=== PATIENT | male | born 1955 | race Caucasian/White ===

== ENCOUNTER 2021-07-06 21:15 | Observation (INO) ==
[2021-07-06] MEDS ORDERED: ONDANSETRON INJ 2 MG/ML 2 ML VIAL IV STA (21:44)
[2021-07-06] MEDS ORDERED: MoRPHine SULFATE 4 MG/ML 1 ML CARP\\VIAL IV STA ×2 (21:44→23:33)
--- NOTE | 2021-07-06 21:59 | Emergency Department Note ---
Impression & Plan Abdominal pain, Hypertensive urgency ED Provider Note Provider: Nirav Keenan MD DATE OF SERVICE: 07/06/2021 CHIEF COMPLAINT: Abdominal and back pain HISTORY OF PRESENT ILLNESS: Patient is a 65-year-old gentleman presenting with sudden onset around 530 this evening of significant abdominal pain diffusely radiating to the back. Patient states he was sitting in a came on suddenly. No significant chest pain or leg pain or numbness. Patient states she has a little bit of nausea but no vomiting and no diarrhea. Patient states he is low bit of abdominal tenderness. No syncope reported. Patient states he took some Dulcolax and some ibuprofen without effect earlier. Patient states he had a little bit of stomach cramping discomfort earlier in the summer but that was a little bit different than this and not as severe and resolved quickly. Patient denies history of abdominal surgeries beyond 2 inguinal hernia surgeries. Denies lower abdominal or inguinal pain. Denies testicular pain. REVIEW OF SYSTEMS: A total of 10 review of systems was obtained and negative except as stated above in the HPI. PAST MEDICAL HISTORY: As noted above MEDICATIONS: Reviewed home medications with the patient, baby aspirin SOCIAL HISTORY: Non-smoker, lives at home PHYSICAL EXAM: GENERAL: alert and oriented seated on the stretcher appears somewhat uncomfortable Head: normocephalic and atraumatic EYES: No injection, discharge or icterus. NECK: Trachea midline. LUNGS: Airway patent. No retractions. Breath sounds clear with good air entry bilaterally. HEART: Regular rate and rhythm. No chest wall tenderness ABDOMEN: Soft with mild diffuse mid abdominal tenderness. BACK: No midline tenderness, no SI joint tenderness. No bilateral flank tenderness. SKIN: Acyanotic, warm, dry, without rashes EXTREMITIES: Without swelling, tenderness or deformity NEUROLOGICAL: No focal deficits. No aphasia. No facial droop or slurred speech. Ambulatory. EK bpm sinus bradycardia without PVC or PAC. No acute ST segment elevation or depression noted. QTc 434. Lead III T wave inversions as well as aVF T wave inversions. CONTINUOUS CARDIAC MONITORING: was ordered and showed a heart rate of 50s-90s bpm in normal sinus rhythm and sinus bradycardia Patient's laboratory studies and imaging reviewed. Differential includes Appendicitis, testicular torsion, infections, diverticulitis, UTI, obstruction, mesenteric ischemia, aortic pathology, inflammatory bowel disease, renal colic, PUD, pancreatitis, biliary pathology, hernia, volvulus, constipation, as well as other pathologies. IMPRESSION/MEDICAL DECISION MAKING: Patient without significant past medical history and significant discomfort in the mid abdomen radiating to the back. Denies any chest pain. EKG and troponin were however completed. Given some morphine and Zofran to help with symptom control initially. Will send for CT scan emergently to evaluate for intra- abdominal pathology in particular for any signs of aortic dissection. Basic labs to look for hepatic dysfunction or lipase elevation concerning for pancr eatitis were sent. Blood work here with a leukocytosis of 14.8. No anemia. No severe electrolyte abnormality. Stable creatinine of 1.3. No transaminitis or elevated bilirubin noted. Lipase not elevated. Troponin is not elevated. EKG was obtained. Lower suspicion for acute UT/STEMI given the work-up. Patient blood pressure is improved some with morphine which has helped his pain. Urinalysis not impressive for infection. No findings on the CT report for aortic pathology or other acute intra-abdominal pathology. Symptoms could be related to gastrointestinal spasm. Seems unlikely to be biliary colic. On reassessment, the patient was with still having 7 out of 10 abdominal pain and blood pressure was still over 200 systolic. Still with some mid abdominal discomfort but not a Tavares sign. Again CAT scan results and laboratory findings reviewed with the patient. Patient's hypertension and pain seems without to the findings at this time. Again CTA did not show evidence of acute arterial abnormality per the radiology report. Will complete a right upper quadrant ultrasound of the gallbladder to exclude this but given his significant pain and new significant hypertension, given some additional morphine hydralazine here. Discussed further observation overnight with the patient which he wished for and the hospitalist was contacted. DIAGNOSIS: Abdominal pain, hypertensive urgency DISPOSITION: Hospitalist will evaluate Patient was agreeable with this plan. Past Med/Surg History Social History Smoking Status: Never smoker Preferred Language: Kittitian Feels Safe at Home: Yes Allergies Allergies Allergy/AdvReac Type Severity Reaction Status Date / Time SULFA Allergy Unknown Unknown Uncoded 07/06/21 22:50 Home Meds Home Medications Medication Instructions Recorded Confirmed aspirin 81 mg tablet,delayed 81 mg PO DAILY 07/06/21 07/06/21 release (Aspirin Low Dose) multivitamin 1 tab PO DAILY 07/06/21 07/06/21 Results & Data (ED) Vital Signs Vital Signs - 24 hr 07/06/21 21:16 07/06/21 21:34 07/06/21 22:53 Temperature 36.6 C Temperature Source Temporal Artery Scan Pulse Rate 70 80 Pulse Rhythm Regular Pulse Strength Normal Respiratory Rate 18 18 18 Respiratory Effort / Characteristics Non-Labored Respiratory Depth Normal Respiratory Pattern Regular Blood Pressure 226/107 H Blood Pressure [Left Arm] 187/92 H Blood Pressure Mean 146 Blood Pressure Mean [Left Arm] 123 Blood Pressure Position Sitting Blood Pressure Position [Left Arm] Semi-fowlers Pulse Oximetry 98 93 97 Oxygen Delivery Method Room Air Room Air Room Air Sepsis Recent Fever Within 48 Hours No Sepsis New/Unexplained Change in Mental Status No Sepsis Action Taken by Nursing No Action Required Laboratory Data Result diagrams: 07/06/21 22:10 07/06/21 22:10 Lab Results 07/06/21 07/06/21 07/06/21 Range/Units 22:10 22:10 22:45 WBC 14.85 H (4.8-10.8) K/uL RBC 5.21 (4.7-6.1) M/uL Hgb 16.1 (14.0-18.0) g/dL Hct 44.2 (42-52) % MCV 84.8 (80-100) fL MCH 30.9 (25-34) pg MCHC 36.4 H (32-36) g/dL RDW Std Deviation 39.8 (36.4-46.3) fL RDW Coeff of Tc 12.9 (11.5-14.5) % Plt Count 240 (130-400) K/uL MPV 10.0 (7.4-10.4) fL Immature Gran % (Auto) 0.3 % Neut % (Auto) 88.0 % Lymph % (Auto) 6.7 % [place] % (Auto) 4.8 % Eos % (Auto) 0.1 % Baso % (Auto) 0.1 % Neut # (Auto) 13.08 H (1.4-6.5) K/uL Lymph # (Auto) 0.99 L (1.2-3.4) K/uL [place] # (Auto) 0.71 H (0.11-0.59) K/uL Eos # (Auto) 0.01 (0-0.5) K/uL Baso # (Auto) 0.02 (0-0.2) K/uL Immature Gran # (Auto) 0.04 H (0.00-0.02) K/uL Sodium 137 (136-145) mmol/L Potassium 3.4 L (3.5-5.1) mmol/L Chloride 106 (98-107) mmol/L Carbon Dioxide 22 (21-32) mmol/L Anion Gap 9.0 (3-11) BUN 25 H (7-18) mg/dl Creatinine 1.37 (0.6-1.4) mg/dl Est Cr Clr Drug Dosing 54.1 ml/min Est GFR ( Amer) 62.3 ml/min Est GFR (Non-Af Amer) 53.7 ml/min BUN/Creatinine Ratio 18.0 (10-20) Glucose 172 H (70-99) mg/dl Calcium 9.7 (8.5-10.1) mg/dl Total Bilirubin 0.8 (0.2-1) mg/dl AST 19 (15-37) U/L ALT 23 (12-78) Alkaline Phosphatase 65 (45-117) U/L Troponin I < 0.015 (0-0.045) ng/ml Total Protein 7.2 (6.4-8.2) gm/dl Albumin 3.9 (3.4-5.0) gm/dl Globulin 3.3 (2.5-4.0) gm/dl Albumin/Globulin Ratio 1.2 (0.9-2) Lipase 100 (73-393) U/L Urine Color Yellow Urine Appearance Clear (Clear) Urine pH 8.5 H (4.5-7.5) Ur Specific [place] 1.022 (1.000-1.030) Urine Protein Negative (Negative) Urine Glucose (UA) Trace H (Negative) Urine Ketones 1+ H (Negative) Urine Blood 1+ H (Negative) Urine Nitrite Negative (Negative) Urine Bilirubin Negative (Negative) Urine Urobilinogen Negative (Negative) Ur Leukocyte Esterase Negative (Negative) Urine WBC (Auto) 0 (0-5) /hpf Urine RBC (Auto) 5-10 H (0-4) /hpf U Hyaline Cast (Auto) 0 (0-5) /lpf U Epithel Cells (Auto) 0-5 (0-5) /lpf Urine Bacteria (Auto) Negative (Negative) Administered Medications Discontinued Medications Hydralazine HCl (Hydralazine Hcl 20 Mg/Ml Vial) 5 mg IV NOW ONE Stop: 07/06/21 23:34 Last Admin: 07/06/21 23:43 Dose: 5 mg Documented by: [id number] Ioversol (Optiray 320 125ml) 120 ml IV ONCE ONE Stop: 07/06/21 22:28 Last Admin: 07/06/21 22:28 Dose: 120 ml Documented by: [id number] Morphine Sulfate (Morphine Sulfate 4 Mg/Ml 1 Ml Carp\Vial) 4 mg IV NOW STA Stop: 07/06/21 21:45 Last Admin: 07/06/21 22:19 Dose: 4 mg Documented by: [id number] Morphine Sulfate (Morphine Sulfate 4 Mg/Ml 1 Ml Carp\Vial) 4 mg IV NOW STA Stop: 07/06/21 23:34 Last Admin: 07/06/21 23:44 Dose: 4 mg Documented by: [id number] Ondansetron HCl (Ondansetron Inj 2 Mg/Ml 2 Ml Vial) 4 mg IV NOW STA Stop: 07/06/21 21:45 Last Admin: 07/06/21 22:19 Dose: 4 mg Documented by: [id number] Imaging Data Radiologist's Impression: Abdomen/Pelvis CTA 07/06/21 21:34 CT angio abdomen pelvis w con CLINICAL HISTORY: abd pain to back, HTN COMPARISON STUDY: No previous studies for comparison. CT DOSE: 532.75 mGy.cm TECHNIQUE: Standard CT Angiogram of the aorta was performed with IV contrast followed by image post processing with coronal, and sagittal MIP reformats... This CT exam was performed using one or more of the following dose reduction techniques: Automated exposure control, adjustment of the mA and/or kV according to patient size, or use of iterative reconstruction technique. CONTRAST: Optiray 320, 120 mL nonionic intravenous contrast. VASCULAR FINDINGS: Abdominal aorta: patent without aneurysm or dissection. No significant atherosclerotic calcification. Celiac trunk: patent without stenosis. Superior mesenteric artery: patent without stenosis. Right renal artery: patent without stenosis. Left renal artery: patent without stenosis. Inferior mesenteric artery: patent without stenosis. Right common iliac artery: patent without stenosis. Right internal iliac artery: patent without stenosis. Right external iliac artery: patent without stenosis. Left common iliac artery: patent without stenosis. Left internal iliac artery: patent without stenosis. Left external iliac artery: patent without stenosis NONVASCULAR FINDINGS: Lung base: The lung bases are clear. Abdominal cavity: There is no evidence for abdominal mass, adenopathy or as cites. Liver: There is homogeneous attenuation of the liver parenchyma. There is no evidence for enhancing mass lesion. Spleen: There is homogeneous attenuation of the splenic parenchyma. There is no enhancing mass lesion. Pancreas: There is homogeneous attenuation of the pancreatic parenchyma. There is no evidence for mass lesion or peripancreatic fluid collection. Gall Bladder: The gallbladder is partially contracted due to the patient's nonfasting state with no evidence for intraluminal calculi, wall thickening or pericholecystic edema. Adrenal glands: The adrenal glands are normal in size and attenuation. There is no evidence for enhancing mass lesion. Kidneys: There is homogeneous attenuation of the renal parenchyma bilaterally. There is no evidence for renal calculus or hydronephrosis. There is no evidence for enhancing mass. Bowel: The stomach is distended with liquid and food stuff. The bowel loops are normally placed within the abdomen and pelvis without evidence for dilatation or obstruction. There is minimal sigmoid diverticulosis without evidence for diverticulitis. There are no inflammatory changes present. There is no evidence for free air. The appendix is not visualized. Bladder: The bladder is within normal limits with no evidence for focal mass, calculus or diverticulum. : There is no evidence for pelvic mass or adenopathy. There is no evidence for pelvic ascites. The prostate is mildly enlarged. Osseous structures: There is no acute osseous pathology. IMPRESSION: 1. Normal CTA of the abdomen and pelvis. 2. No acute intra-abdominal or pelvic abnormality. 3. Sigmoid diverticulosis without evidence for diverticulitis. ACT 112: Negative or not required by law. Electronically signed by: Marino Garcia M.D. 07/06/2021 10:41 PM Discharge Plan Visit Data Chief Complaint: Abdominal Pain Stated Complaint: ABDOMINAL BLOATING,BACK PAIN ED Provider: Nirav Keenan Discharge Problem: Abdominal pain, Hypertensive urgency Patient Disposition: Being Evaluated by Hospitalist Forms Stand Alone Forms: My [facility] Prescriptions Prescriptions: No Action multivitamin Tablet 1 tab PO DAILY RF: 0 aspirin [Aspirin Low Dose] 81 mg Tablet,Delayed Release (Dr/Ec) 81 mg PO DAILY RF: 0 Referrals Referrals: PCP,NO [Physician] -
[2021-07-06] MEDS ORDERED: OPTIRAY 320 125ml IV ONE (22:27)
[2021-07-06 22:29] LABS: Basophils # (auto) 0.02 K/uL (0-0.2); Basophils % (auto) 0.1 %; Eosinophils # (auto) 0.01 K/uL (0-0.5); Eosinophils % (auto) 0.1 %; Hematocrit (blood only) 44.2 % (42-52); Hemoglobin 16.1 g/dL (14.0-18.0); Immature Granulocytes # (auto) 0.04 K/uL (0.00-0.02); Immature Granulocytes % (auto) 0.3 %; Lymphocytes # (auto) 0.99 K/uL (1.2-3.4); Lymphocytes % (auto) 6.7 %; Mean Corpuscular Hemoglobin 30.9 pg (25-34); Mean Corpuscular Hgb Conc 36.4 g/dL (32-36); Mean Corpuscular Volume 84.8 fL (80-100); Monocytes # (auto) 0.71 K/uL (0.11-0.59); Monocytes % (auto) 4.8 %; Neutrophils # (auto) 13.08 K/uL (1.4-6.5); Platelet Count 240 K/uL (130-400); RDW Coefficient of Variation 12.9 % (11.5-14.5); RDW Standard Deviation 39.8 fL (36.4-46.3); Red Blood Count 5.21 M/uL (4.7-6.1); White Blood Count 14.85 K/uL (4.8-10.8)
[2021-07-06 22:40] LABS: Alanine Aminotransferase 23 (12-78); Albumin Level 3.9 gm/dl (3.4-5.0); Aspartate Aminotransferase 19 U/L (15-37); Blood Urea Nitrogen 25 mg/dl (7-18); Calcium 9.7 mg/dl (8.5-10.1); Carbon Dioxide 22 mmol/L (21-32); Chloride 106 mmol/L (98-107); Creatinine Clr Calc Pharmacy 54.1 ml/min; Est GFR (African American) 62.3 ml/min; Est GFR (Non-African American) 53.7 ml/min; Glucose 172 mg/dl (70-99); Lipase 100 U/L (73-393); Potassium 3.4 mmol/L (3.5-5.1); Sodium 137 mmol/L (136-145)
--- NOTE | 2021-07-06 22:42 | CT Scan Report ---
CT angio abdomen pelvis w con CLINICAL HISTORY: abd pain to back, HTN COMPARISON STUDY: No previous studies for comparison. CT DOSE: 532.75 mGy.cm TECHNIQUE: Standard CT Angiogram of the aorta was performed with IV contrast followed by image post processing with coronal, and sagittal MIP reformats... This CT exam was performed using one or more of the following dose reduction techniques: Automated ex posure control, adjustment of the mA and/or kV according to patient size, or use of iterative reconst ruction technique. CONTRAST: Optiray 320, 120 mL nonionic intravenous contrast. VASCULAR FINDINGS: Abdominal aorta: patent without aneurysm or dissection. No significant atherosclerotic calcification. Celiac trunk: patent without stenosis. Superior mesenteric artery: patent without stenosis. Right renal artery: patent without stenosis. Left renal artery: patent without stenosis. Inferior mesenteric artery: patent without stenosis. Right common iliac artery: patent without stenosis. Right internal iliac artery: patent without stenosis. Right external iliac artery: patent without stenosis. Left common iliac artery: patent without stenosis. Left internal iliac artery: patent without stenosis. Left external iliac artery: patent without stenosis NONVASCULAR FINDINGS: Lung base: The lung bases are clear. Abdominal cavity: There is no evidence for abdominal mass, adenopathy or ascites. Liver: There is homogeneous attenuation of the liver parenchyma. There is no evidence for enhancing m ass lesion. Spleen: There is homogeneous attenuation of the splenic parenchyma. There is no enhancing mass lesion . Pancreas: There is homogeneous attenuation of the pancreatic parenchyma. There is no evidence for mas s lesion or peripancreatic fluid collection. Gall Bladder: The gallbladder is partially contracted due to the patient's nonfasting state with no e vidence for intraluminal calculi, wall thickening or pericholecystic edema. Adrenal glands: The adrenal glands are normal in size and attenuation. There is no evidence for enhan cing mass lesion. Kidneys: There is homogeneous attenuation of the renal parenchyma bilaterally. There is no evidence f or renal calculus or hydronephrosis. There is no evidence for enhancing mass. Bowel: The stomach is distended with liquid and food stuff. The bowel loops are normally placed withi n the abdomen and pelvis without evidence for dilatation or obstruction. There is minimal sigmoid div erticulosis without evidence for diverticulitis. There are no inflammatory changes present. There is no evidence for free air. The appendix is not visualized. Bladder: The bladder is within normal limits with no evidence for focal mass, calculus or diverticulu m. : There is no evidence for pelvic mass or adenopathy. There is no evidence for pelvic ascites. The prostate is mildly enlarged. Osseous structures: There is no acute osseous pathology. IMPRESSION: 1. Normal CTA of the abdomen and pelvis. 2. No acute intra-abdominal or pelvic abnormality. 3. Sigmoid diverticulosis without evidence for diverticulitis. ACT 112: Negative or not required by law. Electronically signed by: Marino Garcia M.D. 07/06/2021 10:41 PM
[2021-07-06 22:45] LABS: Albumin Globulin Ratio 1.2 (0.9-2); Alkaline Phosphatase 65 U/L (45-117); Globulin 3.3 gm/dl (2.5-4.0); Total Protein 7.2 gm/dl (6.4-8.2); Troponin I < 0.015 ng/ml (0-0.045)
[2021-07-06 22:55] LABS: Bilirubin,Total 0.8 mg/dl (0.2-1)
[2021-07-06 23:14] LABS: Appearance Urine Clear (Clear); Bacteria Urine Automated Negative (Negative); Bilirubin Urine Negative (Negative); Blood Urine 1+ (Negative); Cast Urine Automated 0 /lpf (0-5); Color Urine Yellow; Epithelial Cell Urine Auto 0-5 /lpf (0-5); Glucose Urine UA Trace (Negative); Ketones Urine 1+ (Negative); Leukocyte Esterase Urine Negative (Negative); Nitrite Urine Negative (Negative); Protein Urine Negative (Negative); Specific Gravity Urine 1.022 (1.000-1.030); Urobilinogen Urine Negative (Negative); WBC Urine Automated 0 /hpf (0-5); pH Urine 8.5 (4.5-7.5)
[2021-07-06] MEDS ORDERED: hydrALAZINE HCL 20 MG/ML VIAL IV ONE (23:33)
[2021-07-07] MEDS ORDERED: HYDROmorphone INJ 0.5 MG/0.5 ML SYR ONE (04:22)
[2021-07-07] MEDS ORDERED: NITROGLYCERIN SL 0.4 MG/TAB TAB SL PRN (05:11)
[2021-07-07] MEDS ORDERED: POLYETHYLENE (MIRALAX) 17 GM PACK PO PRN (05:11)
[2021-07-07] MEDS ORDERED: HYDROmorphone INJ 0.5 MG/0.5 ML SYR IV PRN (05:11)
[2021-07-07] MEDS ORDERED: ACETAMINOPHEN 325 MG TAB PO PRN (05:11)
--- NOTE | 2021-07-07 05:14 | History and Physical Report ---
DATE OF ADMISSION: 07/07/2021. CHIEF COMPLAINT: Abdominal pain, elevated blood pressure. HISTORY OF PRESENT ILLNESS: This is a 65-year-old male with no significant past medical history who presents with severe abdominal pain. The pain started around 5:00 p.m. yesterday and it got progressively worse, not getting better, 10/10 in severity, mostly in the upper abdomen radiating to back, associated with some nausea, no vomiting. He thought he was constipated, took some stool softener, but that did not help. So as pain was not getting better, he came to the ER. In the ER, his blood pressure was running in 220s and required pain medication. CT angiogram of the abdomen and pelvis done showed no dissection, no acute findings. Gallbladder ultrasound, preliminary report showed possible small stone, but no cholecystitis. Currently, still has some tenderness, resting comfortably. Received hydralazine for blood pressure. Says his blood pressure generally runs okay at home. Denies any chest pain, no shortness of breath, no cough, no fevers, no headache, no blurred visions. Has some chronic sinus runny nose and cough from the postnasal drip. Normal bladder movements. He had a normal bowel movement yesterday. No swelling in the legs, no rash. Otherwise, ambulates and climbs steps okay. ALLERGIES: SULFA. PAST MEDICAL HISTORY: As mentioned above. PAST SURGICAL HISTORY: Colonoscopy, right inguinal hernia repair, left inguinal hernia repair, vasectomy. MEDICATIONS: Aspirin 81 mg p.o. daily, multivitamin 1 tablet p.o. daily. FAMILY HISTORY: Significant for father had a sarcoma in back; mother has breast cancer, diabetes. SOCIAL HISTORY: , no smoking, no alcohol, no drug use. REVIEW OF SYSTEMS: As per HPI. Rest of review of systems is negative. PHYSICAL EXAMINATION: GENERAL: The patient is of moderate build, not in acute distress. VITAL SIGNS: Temperature 36.6, pulse 56, respiratory rate 18, blood pressure 117/89, oxygen 97% on room air. HEENT: Pupils equal, round and reactive to light. Oral mucosa moist. NECK: No JVD, no neck masses. CARDIOVASCULAR: S1 and S2 heard. Regular rate and rhythm. No murmur, no gallop. RESPIRATORY SYSTEM: Normal AP diameter. No accessory muscle use. No wheezing, no crackles. ABDOMEN: Soft, bowel sounds present. Tenderness in the epigastric region. Mild guarding, no rigidity, no distention. CENTRAL NERVOUS SYSTEM: Cranial nerves II-XII grossly intact, nonfocal. EXTREMITIES: No edema, no erythema. LABORATORY DATA: WBC 14.8, hemoglobin 16.1, hematocrit 44.2, platelets 240. Sodium 137, potassium 3.4, chloride 106, bicarbonate 22, BUN 25, creatinine 1.3, serum glucose 172, calcium 9.7, total bilirubin 0.8, AST 19, ALT 23, alkaline phosphatase 65. Troponin I less than 0.015. Lipase 100. Urinalysis, +1 ketones. SARS-CoV-2 negative. IMAGING DATA: CTA of the abdomen and pelvis, no acute findings. Sigmoid diverticulosis without evidence of diverticulitis. Gallbladder ultrasound, preliminary report shows possible gallstone, but no acute cholecystitis. EKG: Sinus bradycardia at a rate of 55, no significant change was found. ASSESSMENT AND PLAN: This 65-year-old male presents with severe abdominal pain and also found to have hypertensive urgency. 1. Severe abdominal pain: Etiology unclear, possible gastritis. CTA of the abdomen and pelvis unremarkable. Gallbladder ultrasound, questionable on preliminary report showing gallstones, but no cholecystitis. Will follow the final report. Will keep him n.p.o. Will place him on IV Protonix 40 b.i.d., IV pain meds, and IV antiemetics p.r.n. Consult GI in the a.m. for further recommendation. 2. Hypertensive urgency: Possibly situational. No history of hypertension. Will place him on IV hydralazine p.r.n. and Monitor. 3. Deep venous thrombosis prophylaxis: Sequential compression devices for now. DISPOSITION: Closely observe in med tele. PT/OT prior to discharge. Social service to help with discharge planning. Job ID: [id number] [facility]
[2021-07-07] MEDS: SODIUM CHLORIDE 0.9% 1000ML 1,000 ML IV SCH ×3 (05:33→20:47)
[2021-07-07] MEDS: ONDANSETRON INJ 2 MG/ML 2 ML VIAL IV PRN ×2 (05:44→23:46)
[2021-07-07 05:58] LABS: Basophils # (auto) 0.01 K/uL (0-0.2); Basophils % (auto) 0.1 %; Immature Granulocytes # (auto) 0.03 K/uL (0.00-0.02); Immature Granulocytes % (auto) 0.2 %; Lymphocytes # (auto) 0.96 K/uL (1.2-3.4); Mean Corpuscular Hemoglobin 30.9 pg (25-34); Mean Corpuscular Hgb Conc 36.4 g/dL (32-36); Mean Corpuscular Volume 85.1 fL (80-100); Mean Platelet Volume 9.7 fL (7.4-10.4); Monocytes % (auto) 5.6 %; Neutrophils # (auto) 14.16 K/uL (1.4-6.5); Neutrophils % (auto) 88.1 %; Platelet Count 246 K/uL (130-400); RDW Standard Deviation 40.3 fL (36.4-46.3); Red Blood Count 5.17 M/uL (4.7-6.1); White Blood Count 16.06 K/uL (4.8-10.8)
[2021-07-07 06:23] LABS: Albumin Level 3.8 gm/dl (3.4-5.0); BUN Creatinine Ratio 20.2 (10-20); Bilirubin Direct 0.2 mg/dl (0-0.2); Calcium 9.3 mg/dl (8.5-10.1); Creatinine Clr Calc Pharmacy 68.6 ml/min; Est GFR (Non-African American) 71.6 ml/min; Magnesium 2.2 mg/dl (1.8-2.4); Potassium 3.7 mmol/L (3.5-5.1)
[2021-07-07 06:26] LABS: Bilirubin,Total 0.9 mg/dl (0.2-1); Total Protein 7.1 gm/dl (6.4-8.2)
[2021-07-07 07:06] LABS: iSTAT Creatinine 1.2 mg/dl (0.6-1.3); iSTAT Ionized Calcium 1.11 mmol/l (1.12-1.32); iSTAT Potassium 3.4 mmol/L (3.3-5.0)
--- NOTE | 2021-07-07 08:07 | Ultrasound Report ---
US gallbladder CLINICAL HISTORY: mid abd/epigastric pain TECHNIQUE: Multiple real-time sonographic images of the right upper quadrant were obtained. Comparison: None available at the time of this dictation. FINDINGS: The liver is diffusely homogenous with normal contour and echogenicity. No focal mass lesions are se en. No intrahepatic ductal dilatation is seen. No gallstones or sludge are identified within the gallbladder. The gallbladder wall is not thickened. There is no pericholecystic fluid present. There is a possible 2 mm stone versus polyp. A sonographic Tavares's sign was not elicited by the sonographe r. The common duct measures 0.4 cm in diameter at the level of the hepatic artery. The visualized portions of the pancreas appear normal. The right kidney shows normal echogenicity, cortical thickness and renal contour. The right kidney sh ows no evidence of hydronephrosis or mass. No ascites or free fluid is seen in Roman's pouch. IMPRESSION: 1. No acute abnormality and in particular no evidence of acute cholecystitis. 2. 2 mm stone versus polyp in the gallbladder. ACT 112: Negative or not required by law. Electronically signed by: Wood Christensen M.D. 07/07/2021 8:05 AM
[2021-07-07] MEDS: MULTIVITAMIN TAB PO SCH (09:07)
[2021-07-07] MEDS: ASPIRIN 81 MG ECTAB PO SCH (09:07)
[2021-07-07] MEDS: PANTOprazole 40 MG in SYRINGE 0 ML IV SCH ×2 (10:18→20:06)
--- NOTE | 2021-07-07 11:54 | Electrocardiogram Report ---
Test Reason : Blood Pressure : / mmHG Vent. Rate : 055 BPM Atrial Rate : 055 BPM P-R Int : 148 ms QRS Dur : 096 ms QT Int : 454 ms P-R-T Axes : 053 000 001 degrees QTc Int : 434 ms Sinus bradycardia Otherwise normal ECG When compared with ECG of 08-MAY-2003 22:09, No significant change was found Confirmed by Willy Moise ([id number]) on 07/07/2021 11:54:08 AM Referred By: REFERRED SELF Confirmed By:Willy Moise
--- NOTE | 2021-07-07 12:37 | Gastrointestinal Consultation ---
Date of Consultation July 07, 2021 Assessment & Plan (1) Abdominal pain: likely from constipation/bloating I suspect. improved now recs: --clear liquid diet now then advance as tolerated --miralax BID starting now and upon discharge --if no improvement can consider endoscopic evaluation as an outpatient Thank you for allowing me to participate in the care of this patient History of Present Illness Attending Physician: Joseph Correa MD History of Present Illness 65-year-old male with no significant past medical history who presents with severe abdominal pain.He ate lunch at his daughters house yesterday and came home and took a shower and developed this pain. [place] he may have been constipated, took dulcolax without improvement. pain was 10/10, upper abdomen. CTA normal, US gallbladder unremarkable. He feels much better today. No hx ulcers, no family hx PUD nor gastric cancer. blood pressure was also very elevated yesterday on arrival. labs reviewed. Allergies Allergy/AdvReac Type Severity Reaction Status Date / Time Sulfa (Sulfonamide Allergy Unknown Unknown Verified 07/07/21 05:30 Antibiotics) Home Medications Medication Instructions Recorded Confirmed Type aspirin 81 mg tablet,delayed 81 mg PO DAILY 07/06/21 07/06/21 History release (Aspirin Low Dose) multivitamin 1 tab PO DAILY 07/06/21 07/06/21 History Patient History Social History Smoking Status: Never smoker Hx Alcohol Use: Yes Hx Substance Use: No Preferred Language: Turkmen Communication Ability: Effective [employer] Required: No Beliefs That Will Affect Care: None marital status: Current Living Situation: Spouse How many Children do You have: 0 Other Information That Helps Us Care for You: No Feels Safe at Home: Yes Safety Concerns: Feels Safe At This Time Assistive Devices: None Review of Systems Constitutional: no fever, no chills and no weight loss Eyes: as per Subjective / HPI Ear, Nose, Mouth, Throat: as per Subjective / HPI Respiratory: no dyspnea and no dyspnea on exertion Cardiovascular: no chest pain and no palpitations Gastrointestinal: as per Subjective / HPI Musculoskeletal: no joint pain and no swelling Integumentary: no rash and no lesions Neurologic: no numbness and no paresthesia Psychiatric: no depression and no anxiety Endocrine: no fatigue Hematologic / Lymphatic: no easy bleeding and no easy bruising Physical Exam Constitutional: WD/WN, vitals as above Eyes: EOM intact bilaterally Neck: normal visual inspection Respiratory: normal respiratory effort, lungs clear to auscultation Cardiovascular: RRR, no murmur, no edema Gastrointestinal (Abdomen): Inspection/Auscultation: abdomen normal to inspection; abdomen not distended Percussion/Palpation: abdomen soft; abdomen nontender and no hepatosplenomegaly Musculoskeletal: Extremities: no cyanosis Gait: normal gait Skin: no rashes, warm and dry Neurologic: moves all extremities Psychiatric: A+Ox3, euthymic affect Results & Data ([facility]) Vital Signs (Past 12 Hours) Vital Signs Pulse Resp BP Pulse Ox Pulse Ox 07/07/21 11:00 55 L 16 144/70 H 96 07/07/21 08:00 57 L 16 153/77 H 95 07/07/21 05:14 51 L 18 161/85 H 93 93 07/07/21 05:00 64 18 133/82 96 07/07/21 03:30 56 L 18 178/89 H 97 07/07/21 01:00 68 20 163/86 H 96 PG Care Time/CCT Total # of Minutes Spent Total Time Spent with Patient: Total time spent is greater than 50% in coordination of care (as documented) at patient's floor/unit and/or counseling patient: Coding Level of Care Code 74454 Inpt Consult Level 4 Diagnoses Abdominal pain R10.84 Abdominal location: generalized (1) Abdominal pain Abdominal location: generalized Qualified Code(s): R10.84 - Generalized abdominal pain
[2021-07-07] MEDS: POLYETHYLENE (MIRALAX) 17 GM PACK PO SCH ×2 (14:22→20:07)
[2021-07-07] MEDS ORDERED: MAGNESIUM HYDROXIDE SUSP 30 ML UDC PO PRN (17:48)
[2021-07-07] MEDS: lisinopril 10 MG TAB PO SCH (18:16)
[2021-07-07] MEDS: hydrALAZINE HCL 20 MG/ML VIAL IV PRN (21:01)
[2021-07-08] MEDS: SODIUM CHLORIDE 0.9% 1000ML 1,000 ML IV SCH ×2 (04:15→12:25)
[2021-07-08] MEDS: lisinopril 10 MG TAB PO SCH (07:53)
[2021-07-08] MEDS: PANTOprazole 40 MG in SYRINGE 0 ML IV SCH ×2 (07:54→20:11)
[2021-07-08] MEDS: MULTIVITAMIN TAB PO SCH (07:54)
[2021-07-08] MEDS: POLYETHYLENE (MIRALAX) 17 GM PACK PO SCH ×2 (07:54→20:11)
[2021-07-08] MEDS: ASPIRIN 81 MG ECTAB PO SCH (07:54)
[2021-07-08] MEDS ORDERED: lisinopril 10 MG TAB PO ONE (13:08)
[2021-07-08] MEDS: DOCUSATE SODIUM 100 MG CAP PO SCH ×2 (14:28→20:11)
[2021-07-08] MEDS: LACTULOSE SYRUP 30 GM/45 ML UDP PO PRN ×2 (16:16→22:54)
--- NOTE | 2021-07-08 16:26 | Hospitalist Progress Note ---
Date of Service July 08, 2021 Assessment & Plan (1) Abdominal pain: Plan: 65-year-old male without significant past medical history who presented to the ED with severe abdominal pain Abdominal pain likely due to constipation GI consulted -recommend starting MiraLAX twice daily, no endoscopic evaluation at this time Abdominal pain improving, patient passing flatus however no BM yet Will give milk of magnesia x 1, start Colace twice daily, lactulose x 1 Advance diet (2) Hypertensive urgency: Plan: Presented with BP 226/107 No history of hypertension Pain/situational anxiety may be contributing however BP remains elevated Started on lisinopril 10 mg daily --> will increase to 20 mg daily DC IVF today (3) DVT prophylaxis: Plan: SCDs, ambulate Admission and Anticipated Discharge Date Admission Date: July 07, 2021 Supervising Physician Co-Signing Physician Notes Attending Addendum: delayed entry date of service noted above care coordinated with ALEX Bay please refer to her notes for full details, I agree with her notes patient seen and examined, records reviewed by myself as well on exam, patient seen sitting up in bed, comfortable states he feels much better overall had 2 BMs previous day no chest pain, dyspnea, palpitations, dizziness no other symptoms VS noted and reviewed oriented x 3, not in distress, speaks in sentences with no effort nor accessory muscle use normal rate, regular rhythm, no murmurs clear breath sounds bilaterally non distended, soft, nontender no bipedal edema, erythema, warmth no neuro deficits Labs: all noted and reviewed including below ASSESSMENT AND PLAN ABDOMINAL PAIN SECONDARY TO CONSTIPATION resolved daily laxative HYPERTENSION Lisinopril + Amlodipine on discharge ff up with PCP other diagnoses and plan of care as per ALEX Bay's notes Joseph Correa MD Subjective Patient seen and examined. Follow-up for abdominal pain, constipation. Patient ambulating in the halls independently. Abdominal pain improved. Passing flatus however no BM. No nausea or vomiting. Denies chest pain or shortness of breath. Review of Systems Review of Systems: ROS per HPI, all other systems reviewed and negative Physical Exam Constitutional: WD/WN, vitals as above Respiratory: normal respiratory effort, lungs clear to auscultation Cardiovascular: Rate/Rhythm: regular rate and regular rhythm Gastrointestinal (Abdomen): Inspection/Auscultation: + abdomen distended and normal bowel sounds Percussion/Palpation: abdomen soft; abdomen nontender Skin: no rashes, warm and dry Neurologic: no focal motor deficits Psychiatric: A+Ox3, euthymic affect Results & Data Results & Data ([facility]) Vital Signs (Past 12 Hours) Vital Signs Temp Pulse Resp BP Pulse Ox 07/08/21 15:16 36.7 C 61 16 181/75 H 07/08/21 07:42 37.1 C 62 16 196/94 H 97 (1) Abdominal pain Abdominal location: generalized Qualified Code(s): R10.84 - Generalized abdominal pain
[2021-07-08] MEDS: hydrALAZINE HCL 20 MG/ML VIAL IV PRN (22:45)
[2021-07-09 07:31] LABS: Hematocrit (blood only) 42.3 % (42-52); Mean Corpuscular Hemoglobin 30.3 pg (25-34); Mean Corpuscular Hgb Conc 35.5 g/dL (32-36); Mean Corpuscular Volume 85.5 fL (80-100); Mean Platelet Volume 9.7 fL (7.4-10.4); Platelet Count 207 K/uL (130-400); RDW Coefficient of Variation 13.2 % (11.5-14.5); RDW Standard Deviation 41.2 fL (36.4-46.3); Red Blood Count 4.95 M/uL (4.7-6.1); White Blood Count 10.72 K/uL (4.8-10.8)
[2021-07-09 08:07] LABS: Calcium 8.8 mg/dl (8.5-10.1); Creatinine Clr Calc Pharmacy 73.8 ml/min; Est GFR (African American) 91.1 ml/min; Est GFR (Non-African American) 78.6 ml/min; Potassium 3.4 mmol/L (3.5-5.1)
[2021-07-09] MEDS: DOCUSATE SODIUM 100 MG CAP PO SCH (08:20)
[2021-07-09] MEDS: ASPIRIN 81 MG ECTAB PO SCH (08:21)
[2021-07-09] MEDS: POLYETHYLENE (MIRALAX) 17 GM PACK PO SCH (08:22)
[2021-07-09] MEDS: PANTOprazole 40 MG in SYRINGE 0 ML IV SCH (08:22)
[2021-07-09] MEDS: MULTIVITAMIN TAB PO SCH (08:22)
[2021-07-09] MEDS ORDERED: lisinopril 20 MG TAB PO SCH (09:00)
[2021-07-09] MEDS ORDERED: amLODIPine BESYLATE 5 MG TAB PO ONE (09:30)
--- NOTE | 2021-07-09 16:08 | Discharge Summary ---
Date of Service July 09, 2021 Admission HPI Per Admitting Provider This is a 65-year-old male with no significant past medical history who presents with severe abdominal pain. The pain started around 5:00 p.m. yesterday and it got progressively worse, not getting better, 10/10 in severity, mostly in the upper abdomen radiating to back, associated with some nausea, no vomiting. He thought he was constipated, took some stool softener, but that did not help. So as pain was not getting better, he came to the ER. In the ER, his blood pressure was running in 220s and required pain medication. CT angiogram of the abdomen and pelvis done showed no dissection, no acute findings. Gallbladder ultrasound, preliminary report showed possible small stone, but no cholecystitis. Currently, still has some tenderness, resting comfortably. Received hydralazine for blood pressure. Says his blood pressure generally runs okay at home. Denies any chest pain, no shortness of breath, no cough, no fevers, no headache, no blurred visions. Has some chronic sinus runny nose and cough from the postnasal drip. Normal bladder movements. He had a normal bowel movement yesterday. No swelling in the legs, no rash. Otherwise, ambulates and climbs steps okay. Admission Exam Per Admitting Provider GENERAL: The patient is of moderate build, not in acute distress. VITAL SIGNS: Temperature 36.6, pulse 56, respiratory rate 18, blood pressure 117/89, oxygen 97% on room air. HEENT: Pupils equal, round and reactive to light. Oral mucosa moist. NECK: No JVD, no neck masses. CARDIOVASCULAR: S1 and S2 heard. Regular rate and rhythm. No murmur, no gallop. RESPIRATORY SYSTEM: Normal AP diameter. No accessory muscle use. No wheezing, no crackles. ABDOMEN: Soft, bowel sounds present. Tenderness in the epigastric region. Mild guarding, no rigidity, no distention. CENTRAL NERVOUS SYSTEM: Cranial nerves II-XII grossly intact, nonfocal. EXTREMITIES: No edema, no erythema. Principal Diagnosis Constipation Discharge Exam Constitutional WD/WN, vitals as above Respiratory normal respiratory effort, lungs clear to auscultation Cardiovascular Rate/Rhythm: regular rate and regular rhythm Vessels: normal peripheral pulses Extremities: no edema Gastrointestinal (Abdomen) Inspection/Auscultation: normal bowel sounds Percussion/Palpation: abdomen soft; abdomen nontender Skin no rashes, warm and dry Neurologic no focal motor deficits Psychiatric A+Ox3, euthymic affect Discharge Data Allergies Allergy/AdvReac Type Severity Reaction Status Date / Time Sulfa (Sulfonamide Allergy Unknown Unknown Verified 07/07/21 05:30 Antibiotics) Consultations GI Ordered Studies 07/06/2021 CTA ABD/pelvis IMPRESSION: 1. Normal CTA of the abdomen and pelvis. 2. No acute intra-abdominal or pelvic abnormality. 3. Sigmoid diverticulosis without evidence for diverticulitis. 07/07/2021 gallbladder US IMPRESSION: 1. No acute abnormality and in particular no evidence of acute cholecystitis. 2. 2 mm stone versus polyp in the gallbladder. Hospital Course (1) Abdominal pain: 65-year-old male without significant past medical history who presented to the ED with severe abdominal pain Abdominal pain likely due to constipation GI consulted -recommend starting MiraLAX twice daily, no endoscopic evaluation at this time Also started on Colace twice daily and received doses of milk of magnesia and lactulose On the day of discharge, patient had a large, formed BM. Tolerating regular diet. (2) Hypertensive urgency: Presented with BP 226/107 No history of hypertension Pain/situational anxiety may be contributing however BP remained elevated throughout hospitalization Started on lisinopril 10 mg daily --> increased to 20 mg daily Amlodipine 5 mg daily started Total Time Total Time Spent Total Time Spent (In Minutes): 35 Discharge Plan Discharge Items Patient Disposition: Home - Self-Care Reason For Visit: ABDOMINAL PAIN Discharge Diagnosis: Constipation Activity: Resume your previous activity Non-emergency contact: Primary Care Provider Call non-emergency contact if: you have any medication questions, your symptoms worsen, your pain is not controlled and you have a fever Follow-up/Referrals: Sinan Fox MD [Primary Care Provider] - 07/17/21 11:00 am Diet: Heart Healthy Addtl Attending Provider Instructions: You were admitted to the hospital for abdominal pain. This was felt to be due to constipation. Please start a bowel regimen with MiraLAX 17gm daily and Colace 100 mg twice daily (laxative and stool softener). You can obtain these medicines [id number]. You were also noted to have increased blood pressure while you are in the hospital. You were started on lisinopril and amlodipine. Please go to the [facility] office on Thrus07/11 at 9:50am for the nurse to check your blood pressure. An appointment has been made for you with Dr. Fox on 07/17/21. Pending Studies at Discharge: No Stand-Alone Forms: My [facility], Smoking Cessation Medications and DC Order Prescriptions: New amlodipine [Norvasc] 5 mg Tablet 5 mg PO QAM Qty: 30 RF: 0 lisinopril 20 mg Tablet 20 mg PO QAM Qty: 30 RF: 0 docusate sodium 100 mg Capsule 100 mg PO BID Qty: 1 RF: 0 polyethylene glycol 3350 [Miralax] 17 gram Powder In Packet 17 g PO BID Qty: 1 RF: 0 Continued multivitamin Tablet 1 tab PO DAILY RF: 0 aspirin [Aspirin Low Dose] 81 mg Tablet,Delayed Release (Dr/Ec) 81 mg PO DAILY RF: 0 Discharge Orders: Discharge Order (Routine); Ordered 07/09/21 Ordered By: Nicolle Bay Admission Data Admit Date/Time: 07/07/21 03:30 Attending Provider: Joseph Correa Admit Provider: Samuel Jimenez Primary Care Provider: Sinan Fox Other Providers: Samuel Jimenez ; Kiko Bhagat Other Interventions: Discharge Summary Assessment (RN) Last Done: 07/09/21 13:09
[2021-07-10] MEDS ORDERED: amLODIPine BESYLATE 5 MG TAB PO SCH (09:00)
== END 2021-07-09 13:44 | disposition home or self-care (01) ==
LOC: EDINP 21:15 → ED 21:15 → 3N 07-07 05:10

== ENCOUNTER 2024-03-30 09:21 | Observation (INO) ==
[2024-03-30] MEDS: SODIUM CHLORIDE 0.9% 1,000 ML IV SCH (10:16)
[2024-03-30 10:53] LABS: Basophils # (auto) 0.03 K/uL (0.00-0.20); Basophils % (auto) 0.3 %; Eosinophils # (auto) 0.02 K/uL (0.00-0.50); Eosinophils % (auto) 0.2 %; Hematocrit (blood only) 47.1 % (42.0-52.0); Hemoglobin 16.3 g/dl (14.0-18.0); Immature Granulocytes # (auto) 0.04 K/uL (0.01-0.20); Immature Granulocytes % (auto) 0.4 %; Lymphocytes # (auto) 0.67 K/uL (1.20-3.40); Lymphocytes % (auto) 6.8 %; Mean Corpuscular Hemoglobin 29.7 pg (25.0-34.0); Mean Corpuscular Hgb Conc 34.6 g/dL (32.0-36.0); Mean Corpuscular Volume 85.8 fL (80.0-100.0); Mean Platelet Volume 10.2 fL (9.4-12.4); Monocytes # (auto) 0.25 K/uL (0.11-0.59); Monocytes % (auto) 2.6 %; Neutrophils # (auto) 8.79 K/uL (1.40-6.50); Neutrophils % (auto) 89.7 %; Platelet Count 236 K/uL (130-400); RDW Coefficient of Variation 12.6 % (11.5-14.5); RDW Standard Deviation 39.5 fL (36.4-46.3); Red Blood Count 5.49 M/uL (4.70-6.10)
[2024-03-30 11:00] LABS: Albumin Globulin Ratio 1.9 (0.9-2); Albumin Level 4.7 gm/dl (3.4-5.0); BUN Creatinine Ratio 13.8 (10-20); Bilirubin,Total 0.9 mg/dl (0.2-1.0); Creatinine Clr Calc Pharmacy 64.5 ml/min; Est GFR (African American) 80.4 ml/min; Est GFR (Non-African American) 69.4 ml/min; Globulin 2.5 gm/dl (2.5-4.0); Magnesium 1.9 mg/dl (1.7-2.4); Potassium 3.9 mmol/L (3.5-5.1); Total Protein 7.2 gm/dl (6.0-8.3)
[2024-03-30 11:15] LABS: Thyroid Stimulating Hormone 0.708 uIu/ml (0.300-4.500)
[2024-03-30] MEDS: OPTIRAY 320 125ml IV ONE (11:53)
--- NOTE | 2024-03-30 12:16 | CT Scan Report ---
CT ANGIOGRAPHY OF THE NECK WITH CONTRAST CLINICAL HISTORY: dizzy, agarwal COMPARISON STUDY: No previous studies for comparison. Technique: CT angiography of the carotid and vertebral arteries was obtained using [employer] and 3D rec onstruction on an independent workstation. NASCET criteria was utilized. Automated exposure control was utilized for the study. A dose lowering technique was utilized adhering to the principles of ALA RA. Findings: Visualized portions of the lung apices are unremarkable. There are no cervical spine fractu res. There is no cervical lymphadenopathy. The bilateral common carotid, cervical internal carotid ve rtebral arteries are patent. There is no stenosis or dissection within these vessels. There is no ane urysm within the neck. The CTA of the head will be reported separately. IMPRESSION: Unremarkable CTA of the neck. No stenosis or dissection within the bilateral common carot id, cervical internal carotid or vertebral arteries. ACT 112: Negative or not required by law. Electronically signed by: Jesus Fields M.D. 03/30/2024 12:14 PM
--- NOTE | 2024-03-30 12:34 | CT Scan Report ---
CT head/brain wo con CLINICAL HISTORY: 68 years-old Male with dizzy, NIELSON. Acute dizziness with headache TECHNIQUE: Multiple axial CT images of the head were obtained without contrast. A dose lowering tech nique was utilized adhering to the principles of ALARA. COMPARISON: CTA head of same day FINDINGS: No acute intracranial hemorrhage, midline shift, intracranial mass, hydrocephalus, territorial ischem ia or abnormal extra-axial collection. The calvarium is intact. The paranasal sinuses, mastoid air cells, and middle ear cavities are clear . IMPRESSION: No acute intracranial abnormality. ACT 112: Negative or not required by law. The above report was generated using voice recognition software. It may contain grammatical, syntax o r spelling errors. Electronically signed by: Fernando Patel M.D. 03/30/2024 12:33 PM
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
--- NOTE | 2024-03-30 12:41 | CT Scan Report ---
HEAD CTA HISTORY: dizzy, agarwal TECHNIQUE: Multiaxial CT images of the head were performed following the intravenous administration o f contrast to evaluate the major cerebral vessels. 3D/MIP images were also obtained. Sagittal and co bernadette reformats were reviewed. A dose lowering technique was utilized adhering to the principles of A LUI. COMPARISON: None. FINDINGS: There is no mass, hematoma, midline shift, or acute infarct. Visualized intracranial risk intern al carotid arteries, distal vertebral arteries, and basilar artery are widely patent. There is no sig nificant stenosis, occlusion, or aneurysm seen within the bilateral ACAs, MCAs, or station cleaning porter. The major du ral venous sinuses are patent. IMPRESSION: No significant stenosis, occlusion, or aneurysm within the [place]. ACT 112: Negative or not required by law. Electronically signed by: Killian Partida M.D. 03/30/2024 12:39 PM
[2024-03-30] MEDS: MECLIZINE HCL 25 MG TAB PO STA (13:41)
[2024-03-30] MEDS: diazePAM 5 MG/ML 10ML VIAL IV STA (14:41)
--- NOTE | 2024-03-30 16:25 | History & Physical Report ---
Date of Service March 30, 2024 Assessment & Plan (1) Vertigo: (2) HTN (hypertension): Plan This is a 68-year-old male with significant past medical history of hypertension who presents to ED secondary to severe dizziness that started at approximately 2:30 AM. Intractable Vertigo admit under obs to med tele sx started at 0230 w/o other neurological s/sx; initial Head CT and CTA head/neck unremarkable also describes URI sx congestion, runny nose, drainage x 4 days obtain MRI brain r/o posterior cva Meclizine 25mg TID, will order one time dose PRN valium if sx unrelenting PT consulted to eval for BPPV ddx: Posterior CVA, BPPV, vestibular neuronitis vs labyrinthitis if MRI negative for CVA consider steroid pack in a.m. complete stroke work up with echo, PT/OT, lipids, a1c HTN: chronic, stable on amlodipine and lisinopril, BP elevated in ED likely situational but must r/o CVA Hold BP meds until MRI results - if negative resume DVT ppx: Lovenox FULL CODE PCP: Ruddy Dispo: admit to med tele, likely d/c in 1-2 days when work up complete/vertigo controlled Pt was seen and examined in collaboration with Dr. Ball, please see addendum A total of 52 minutes was spent coordinating, documenting, and providing care for this patient excluding time spent in the performance of separately billed services. This included personally viewing all current laboratories and imaging studies, medication reconciliation, outpatient chart review, and discussion with specialists. History of Present Illness Chief Complaint: Dizziness since 0230 a.m. Primary Care Provider: Sinan Fox MD This is a 68-year-old male with significant past medical history of hypertension who presents to ED secondary to severe dizziness that started at approximately 2:30 AM. He states he woke up this morning and when he went to get out of bed and downstairs he noticed that he felt dizzy. He has a prior history of vertigo approximately 20 years ago in which it felt similar. He was able to walk back upstairs and go back to bed. When he woke up this morning he told his that, "I just do not feel quite right." He was complaining of frontal headache as well as severe dizziness. He describes the dizziness as a off-balance and spinning like sensation. It progressed to the point he even had difficulty walk ing. His brought him to the ED. He denied any facial droop, unilateral weakness or speech difficulties. He does report that over the last 4 days he has been having allergy-like symptoms with sinus congestion, nasal drip and runny nose. He typically never has difficulty with allergies to the surprising to him. He currently is upset as he does not want to spend the night away from his in the hospital. Therefore he does have some runny eyes. He denies any recent fever, chills, sweats, change in vision, change in hearing, chest pain, shortness breath, nausea, vomit, abdominal pain, change in bowel or urinary habits. He does wear hearing assist devices which she does not have with him. He does have chronic tinnitus and feels this is unchanged. In ED patient remained hemodynamically stable. He was modestly hypertensive and he states he did take his morning medications. He underwent head CT as well as CTA of head and neck which was completely unremarkable. ED provider trial of meclizine as well as 2 mg of IV Valium and attempt to improve her symptoms and allow him to rest at home. His symptoms however persisted and when he underwent ambulatory trial he was significantly ataxic and unable to walk. Allergies Allergy/AdvReac Type Severity Reaction Status Date / Time bee venom protein (honey bee) Allergy Unknown Unknown, Unverified 03/30/24 14:40 on file w/ [facility] Sulfa (Sulfonamide Allergy Unknown Unknown Verified 03/30/24 14:40 Antibiotics) Home Medications Medication Instructions Recorded Confirmed Type aspirin 81 mg tablet,delayed 81 mg PO DAILY 07/06/21 03/30/24 History release (Jeannie Low Dose Aspirin) multivitamin 1 tab PO DAILY 07/06/21 03/30/24 History amlodipine 5 mg tablet (Norvasc) 5 mg PO QAM #30 tabs 07/09/21 03/30/24 Rx docusate sodium 100 mg capsule 100 mg PO BID #1 cap 07/09/21 03/30/24 Rx lisinopril 20 mg tablet 20 mg PO QAM #30 tabs 07/09/21 03/30/24 Rx polyethylene glycol 3350 17 gram 17 g PO BID #1 ea 07/09/21 03/30/24 Rx oral powder packet (Miralax) Past Med/Surg History Problem List (Updated 03/30/24 @ 16:35 by Lizbet Ricks PA-C) Vertigo Dizziness (Acute) Abdominal pain (Acute) Hypertensive urgency (Acute) Medical History (Updated 03/30/24 @ 16:35 by Lizbet Ricks PA-C) HTN (hypertension) Surgical History (Updated 03/30/24 @ 16:32 by Lizbet Ricks PA-C) Hx of colonoscopy 2021 Hx of inguinal hernia repair 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 Family History (Updated 03/30/24 @ 16:32 by Lizbet Ricks PA-C) Father Cancer Mother Cancer Diabetes Social History (Updated 03/30/24 @ 16:32 by Lizbet Ricks PA-C) Smoking Status: Former smoker Tobacco Type: Cigars Hx Alcohol Use: No Hx Substance Use: No Preferred Language: Divehi Communication Ability: Effective 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 Beliefs That Will Affect Care: None marital status: Current Living Situation: Spouse Current Living Situation Comment: lives with How many Children do You have: 0 Feels Safe at Home: Yes Safety Concerns: Feels Safe At This Time Assistive Devices: Glasses and Hearing Aid - Bilateral Review of Systems Review of Systems: All systems reviewed & are unremarkable except as noted in HPI & below Physical Exam Physical Exam: Constitutional: WD/WN, vitals as above, NAD, sitting up in bed, pleasant, conversing easily Head: Normocephalic, Atraumatic Eyes: PERRL, conjunctivae normal, anicteric sclerae , no nystagmus, minimal exacerbation of dizziness with head movement ENMT: external ear and nose normal, EAC Clean dry, TM b/l WNL with good anatomical landmarks, oropharynx normal Neck: trachea midline, no thyromegaly normal visual inspection Respiratory: normal respiratory effort, lungs clear to auscultation, no wheeze, rales, rhonchi. Normal insp/exp effort, no accessory muscle use Cardiovascular: RRR, no murmur, no edema Vessels: no JVD or carotid bruit Chest: normal inspection of chest Abdomen: normal bowel sounds, soft, nontender, no hepatosplenomegaly Musculoskeletal: no cyanosis or clubbing, AROM x 4 , strength intact b/l Skin: no rashes, warm and dry normal turgor Neurologic: PERRL, EOMI, accommodation nl, no face palsy, no dysarthria CN's II-XI intact bilaterally and moves all extremities , no pronator drift Psychiatric: A+Ox3, euthymic affect : deferred Results & Data Results & Data Vital Signs (Past 12 Hours) Vital Signs Temp Pulse Pulse Resp BP BP Pulse Ox 03/30/24 16:00 57 L 17 152/89 H 97 03/30/24 14:30 59 L 16 178/97 H 99 03/30/24 12:02 54 L 20 165/86 H 100 03/30/24 10:02 54 L 03/30/24 09:47 51 L 16 172/85 H 100 03/30/24 09:47 100 03/30/24 09:29 36.8 C 54 L 18 189/92 H 100 O2 Del Method O2 Flow Rate 03/30/24 16:00 Room Air 03/30/24 14:30 Room Air 03/30/24 12:02 Room Air 03/30/24 10:02 03/30/24 09:47 Room Air 03/30/24 09:47 Room Air 0 03/30/24 09:29 Room Air Laboratory Results I have independently reviewed and interpreted patient's admitting labs including CBC, CMP, lipase, tsh and troponin. Diagnostic Findings Head CT 03/30/24 10:10 CT head/brain wo con CLINICAL HISTORY: 68 years-old Male with dizzy, NIELSON. Acute dizziness with headache TECHNIQUE: Multiple axial CT images of the head were obtained without contrast. A dose lowering technique was utilized adhering to the principles of ALARA. COMPARISON: CTA head of same day FINDINGS: No acute intracranial hemorrhage, midline shift, intracranial mass, hydrocephalus, territorial ischemia or abnormal extra-axial collection. The calvarium is intact. The paranasal sinuses, mastoid air cells, and middle ear cavities are clear. IMPRESSION: No acute intracranial abnormality. ACT 112: Negative or not required by law. The above report was generated using voice recognition software. It may contain grammatical, syntax or spelling errors. Electronically signed by: Fernando Patel M.D. 03/30/2024 12:33 PM Head CTA 03/30/24 10:10 HEAD CTA HISTORY: dizzy, nielson TECHNIQUE: Multiaxial CT images of the head were performed following the intravenous administration of contrast to evaluate the major cerebral vessels. 3D/MIP images were also obtained. Sagittal and coronal reformats were reviewed. A dose lowering technique was utilized adhering to the principles of ALARA. COMPARISON: None. FINDINGS: There is no mass, hematoma, midline shift, or acute infarct. Visualized intracranial internal carotid arteries, distal vertebral arteries, and basilar artery are widely patent. 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 The major dural venous sinuses are patent. IMPRESSION: No significant stenosis, occlusion, or aneurysm within the [place]. ACT 112: Negative or not required by law. Electronically signed by: Killian Partida M.D. 03/30/2024 12:39 PM Neck CTA 03/30/24 10:10 CT ANGIOGRAPHY OF THE NECK WITH CONTRAST CLINICAL HISTORY: dizzy, nielson COMPARISON STUDY: No previous studies for comparison. Technique: CT angiography of the carotid and vertebral arteries was obtained using Optiray and 3D reconstruction on an independent workstation. NASCET criteria was utilized. Automated exposure control was utilized for the study. A dose lowering technique was utilized adhering to the principles of ALARA. Findings: Visualized portions of the lung apices are unremarkable. There are no cervical spine fractures. There is no cervical lymphadenopathy. The bilateral common carotid, cervical internal carotid vertebral arteries are patent. There is no stenosis or dissection within these vessels. There is no aneurysm within the neck. The CTA of the head will be reported separately. IMPRESSION: Unremarkable CTA of the neck. No stenosis or dissection within the bilateral common carotid, cervical internal carotid or vertebral arteries. ACT 112: Negative or not required by law. Electronically signed by: Jesus Fields M.D. 03/30/2024 12:14 PM Medications Administered Medication List Sodium Chloride (Nss) 1,000 mls @ 250 mls/hr IV .Q4H JOSELYN Stop: 04/29/24 10:14 Last Admin: 03/30/24 14:41 Dose: 250 mls/hr Documented By: Infusion: 03/30/24 14:16 Dose: Infused Documented By: Admin: 03/30/24 10:16 Dose: 250 mls/hr Documented By: MMF Discontinued Medications Diazepam (Diazepam 5 Mg/Ml 10ml Vial) 2 mg IV NOW STA Stop: 03/30/24 14:30 Last Admin: 03/30/24 14:41 Dose: 2 mg Documented By: ML Ioversol (Optiray 320 125ml) 112 ml IV ONCE ONE Stop: 03/30/24 11:54 Last Admin: 03/30/24 11:53 Dose: 112 ml Documented By: J Meclizine HCl (Meclizine Hcl 25 Mg Tab) 25 mg PO NOW STA Stop: 03/30/24 13:26 Last Admin: 03/30/24 13:41 Dose: 25 mg Documented By: MMF COVID-19 Results Results COVID-19 Adm Lab Results: RBC 5.49 M/uL (4.70-6.10) 03/30/24 WBC 9.80 K/ul (4.8-10.8) 03/30/24 Hgb 16.3 g/dl (14.0-18.0) 03/30/24 Hct 47.1 % (42.0-52.0) 03/30/24 Plt Count 236 K/uL (130-400) 03/30/24 Neutrophils (%) (Auto) 89.7 % 03/30/24 Lymphocytes (%) (Auto) 6.8 % 03/30/24 Monocytes # (Auto) 0.25 K/uL (0.11-0.59) 03/30/24 Eosinophils # (Auto) 0.02 K/uL (0.00-0.50) 03/30/24 Immature Granulocyte % (Auto) 0.4 % 03/30/24 Neutrophils # (Auto) 8.79 K/uL (1.40-6.50) H 03/30/24 Lymphocytes # (Auto) 0.67 K/uL (1.20-3.40) L 03/30/24 Monocytes # (Auto) 0.25 K/uL (0.11-0.59) 03/30/24 Eosinophils # (Auto) 0.02 K/uL (0.00-0.50) 03/30/24 Basophils # (Auto) 0.03 K/uL (0.00-0.20) 03/30/24 Na 136 mmol/L (136-145) 03/30/24 K 3.9 mmol/L (3.5-5.1) 03/30/24 Cl 103 mmol/L (98-107) 03/30/24 CO2 25 mmol/L (21-32) 03/30/24 Anion Gap 8 (3-11) 03/30/24 BUN 15 mg/dl (6-23) 03/30/24 Creatinine 1.09 mg/dl (0.6-1.4) 03/30/24 BUN/Creatinine Ratio 13.8 (10-20) 03/30/24 Glucose Level 146 mg/dl (70-99(Fasting)) H 03/30/24 Ca 10.0 mg/dl (8.6-10.3) 03/30/24 Total Bilirubin 0.9 mg/dl (0.2-1.0) 03/30/24 AST/SGOT 19 U/L (13-39) 03/30/24 ALT/SGPT 15 U/L (7-52) 03/30/24 Alkaline Phosphatase 63 U/L (34-104) 03/30/24 Total Protein 7.2 gm/dl (6.0-8.3) 03/30/24 Albumin 4.7 gm/dl (3.4-5.0) 03/30/24 Globulin 2.5 gm/dl (2.5-4.0) 03/30/24 Albumin/Globulin Ratio 1.9 (0.9-2) 03/30/24 Adenovirus (PCR) Not Detected (NotDetected) 03/30/24 B. parapertussis DNA (PCR) Not Detected (NotDetected) 03/13 03/05 B. pertussis DNA (PCR) Not Detected (NotDetected) 03/30/24 C. pneumoniae DNA (PCR) Not Detected (NotDetected) 4 Coronavirus Type OC43 (PCR) Not Detected (NotDetected) Coronavirus Type HKU1 (PCR) Not Detected (NotDetected) Coronavirus Type 229E (PCR) Not Detected (NotDetected) COVID-19 PCR Not Detected (NotDetected) 03/30/24 Coronavirus Type NL63 (PCR) Not Detected (NotDetected) Human Metapneumovirus (PCR) Not Detected (NotDetected) Influenza Virus Type A (PCR) Not Detected (NotDetected) Influenza Virus Type B (PCR) Not Detected (NotDetected) M. pneumoniae (PCR) Not Detected (NotDetected) 03/30/24 Parainfluenza Type 1 (PCR) Not Detected (NotDetected) 03/13 03/05 Parainfluenza Type 2 (PCR) Not Detected (NotDetected) 03/13 03/05 Parainfluenza Type 3 (PCR) Not Detected (NotDetected) 03/13 03/05 Parainfluenza Type 4 (PCR) Not Detected (NotDetected) 03/13 03/05 RSV (PCR) Not Detected (NotDetected) 03/30/24 Enterovirus/Rhinovirus (PCR) Not Detected (NotDetected) Code Status & VTE Plan Code Status FULL CODE VTE Prophylaxis Plan VTE Prophylaxis will be ordered: Yes Supervising Physician Co-Signing Physician Notes Pt was seen and examined by myself, Karina Ball MD on the day of service. Care was coordinated with Lizbet Ricks PA-C. Patient presenting with intractable vertigo, known history of this. On exam alert oriented no acute distress. Neuro exam grossly unremarkable, cranial nerves II through XII grossly intact, strength 5 out of 5 bilaterally. Patient did not ambulate during this exam. Stroke workup to rule out an acute stroke, follow-up pending read on brain MRI. Read not yet available at the time of this dictation. Meclizine and as needed Valium for symptomatic relief PT consult for Denae maneuvers Consider steroids for a possible vestibular neuritis Consider neurology eval if symptoms persistent Otherwise as above. I spent a total [id number] coordinating, documenting, and providing care for this patient excluding time spent in the performance of separately billed services.
[2024-03-30] MEDS: GADOBUTROL 65ML VIAL IV ONE (17:07)
[2024-03-30 17:54] LABS: Adenovirus PCR Not Detected (NotDetected); Bordetella parapertussis PCR Not Detected (NotDetected); Bordetella pertussis PCR Not Detected (NotDetected); Chlamydia pneumoniae PCR Not Detected (NotDetected); Coronavirus 229E PCR Not Detected (NotDetected); Coronavirus CoV-2 (COVID19)PCR Not Detected (NotDetected); Coronavirus HKU1 PCR Not Detected (NotDetected); Coronavirus NL63 PCR Not Detected (NotDetected); Coronavirus OC43PCR Not Detected (NotDetected); Human Metapneumovirus PCR Not Detected (NotDetected); Influenza A PCR Not Detected (NotDetected); Influenza B PCR Not Detected (NotDetected); Mycoplasma pneumoniae PCR Not Detected (NotDetected); Parainfluenza Virus 1 PCR Not Detected (NotDetected); Parainfluenza Virus 2 PCR Not Detected (NotDetected); Parainfluenza Virus 3 PCR Not Detected (NotDetected); Parainfluenza Virus 4 PCR Not Detected (NotDetected); Respiratory Syncytial VirusPCR Not Detected (NotDetected); Rhinovirus/Enterovirus PCR Not Detected (NotDetected)
[2024-03-30] MEDS ORDERED: ACETAMINOPHEN 325 MG TAB PO PRN (18:40)
[2024-03-30] MEDS ORDERED: diazePAM 5 MG/ML 10ML VIAL IV PRN (18:40)
[2024-03-30] MEDS ORDERED: FAMOTIDINE 20 MG TAB PO PRN (18:40)
[2024-03-30] MEDS ORDERED: ONDANSETRON INJ 2 MG/ML 2 ML VIAL IV PRN (18:40)
[2024-03-30] MEDS ORDERED: POLYETHYLENE (MIRALAX) 17 GM PACK PO PRN (18:40)
[2024-03-30] MEDS ORDERED: PHARMACIST DISCHARGE MED REC CONSULT PRN (18:40)
[2024-03-30] MEDS ORDERED: MELATONIN 3 MG TAB PO PRN (21:00)
[2024-03-30] MEDS: MECLIZINE HCL 25 MG TAB PO SCH (21:21)
[2024-03-30] MEDS: ENOXAPARIN INJ 40 MG/0.4 ML SYR SQ SCH (21:21)
[2024-03-31 05:56] LABS: Basophils # (auto) 0.04 K/uL (0.00-0.20); Basophils % (auto) 0.4 %; Eosinophils # (auto) 0.12 K/uL (0.00-0.50); Eosinophils % (auto) 1.3 %; Hematocrit (blood only) 42.7 % (42.0-52.0); Hemoglobin 14.8 g/dl (14.0-18.0); Immature Granulocytes # (auto) 0.04 K/uL (0.01-0.20); Immature Granulocytes % (auto) 0.4 %; Lymphocytes # (auto) 2.02 K/uL (1.20-3.40); Lymphocytes % (auto) 21.2 %; Mean Corpuscular Hemoglobin 29.7 pg (25.0-34.0); Mean Corpuscular Hgb Conc 34.7 g/dL (32.0-36.0); Mean Corpuscular Volume 85.7 fL (80.0-100.0); Mean Platelet Volume 9.6 fL (9.4-12.4); Monocytes # (auto) 1.05 K/uL (0.11-0.59); Neutrophils # (auto) 6.24 K/uL (1.40-6.50); Neutrophils % (auto) 65.7 %; Platelet Count 232 K/uL (130-400); RDW Coefficient of Variation 12.9 % (11.5-14.5); RDW Standard Deviation 39.9 fL (36.4-46.3); Red Blood Count 4.98 M/uL (4.70-6.10); White Blood Count 9.51 K/ul (4.8-10.8)
[2024-03-31 06:09] LABS: Albumin Globulin Ratio 1.7 (0.9-2); Albumin Level 3.9 gm/dl (3.4-5.0); BUN Creatinine Ratio 13.2 (10-20); Bilirubin,Total 1.1 mg/dl (0.2-1.0); Creatinine Clr Calc Pharmacy 66.4 ml/min; Est GFR (African American) 83.2 ml/min; Est GFR (Non-African American) 71.8 ml/min; Globulin 2.3 gm/dl (2.5-4.0); Potassium 3.5 mmol/L (3.5-5.1); Total Protein 6.2 gm/dl (6.0-8.3)
[2024-03-31 07:12] LABS: Estimated Average Glucose 100 mg/dl; Hemoglobin A1C 5.1 % (4.5-5.6)
--- NOTE | 2024-03-31 07:13 | Magnetic Resonance Report ---
MRI OF THE BRAIN WITHOUT AND WITH IV CONTRAST CLINICAL HISTORY: Dizziness. r/o posterior cva. COMPARISON STUDY: Head CT and CTA of the head performed earlier today. TECHNIQUE: Utilizing a 1.5 Shyanne magnet and dedicated coil, multiplanar, multiecho imaging of the br ain was performed pre and postcontrast administration. IV administration of 8.3 mL of Gadavist contr ast was uneventful. FINDINGS: There are no foci of restricted diffusion to suggest acute infarct. No acute intracranial h emorrhage, midline shift or mass effect is present. Brain volume is normal. Ventricular system is nor mal. Basal cisterns are patent. Flow-voids for the major intracranial vessels are present. A small en hancing focus within the [place] has minimal associated T2 hyperintensity. This favors a capillary telan giectasia. No foci of suspicious enhancement are present. Calvarial signal is normal. Small white mat ter T2 hyperintense focus within the left frontal lobe is of doubtful significance. IMPRESSION: 1. No acute intracranial findings. No evidence for acute infarct. 2. Small enhancing focus within the [place] suggestive of a capillary telangiectasia which is of doubtfu l significance. ACT 112: Negative or not required by law. Electronically signed by: Jesus iFelds M.D. 03/31/2024 7:11 AM
[2024-03-31] MEDS: ASPIRIN 81 MG ECTAB PO SCH (07:50)
[2024-03-31 11:32] VITALS: BP 155/80; RESP 18; TEMP 97.9; O2SAT 97
--- NOTE | 2024-03-31 12:17 | Electrocardiogram Report ---
Test Reason : Blood Pressure : */* mmHG Vent. Rate : 53 BPM Atrial Rate : 53 BPM P-R Int : 148 ms QRS Dur : 90 ms QT Int : 452 ms P-R-T Axes : 58 -3 32 degrees QTcB Int : 424 ms Sinus bradycardia Otherwise normal ECG When compared with ECG of 06-Jul-2021 23:19, No significant change was found Confirmed by Rigoberto Luciano ([id number]) on 03/31/2024 12:17:26 PM Referred By: REFERRED SELF Confirmed By: Rigoberto Luciano
--- NOTE | 2024-03-31 13:13 | Discharge Summary ---
Discharge Summary Date of Service March 31, 2024 Principal Dx & Hospital Course #1 = Principal Diagnosis (1) Benign positional vertigo: (2) HTN (hypertension): (3) Asymptomatic bradycardia: Plan Patient presented to the emergency room with onset of dizziness and vertigo. Patient was admitted to the hospital for additional monitoring. Patient was monitored on telemetry and there was no significant arrhythmias other than that the patient did have some bradycardia. He is not on any rate limiting medications. Patient reports that his base line pulse is 50-55. Echocardiogram was performed and showed no significant abnormalities with a normal ejection fraction. This pulse is asymptomatic and his baseline. He was ruled out for acute stroke. Head imaging including brain MRI was negative for acute stroke. Patient's symptoms are very consistent with positional vertigo. He was treated with meclizine and this significantly improved his symptoms. He was also evaluated by therapies underwent Denae maneuvers and this essentially resolved all of his symptomatology. He was up and ambulatory without symptoms and approved to be discharged home from a functional/therapy standpoint. At the time of discharge he was sitting up in he is eating lunch. Other vital signs are stabilized. He is given instructions on movement by therapy. He will be discharged home with as needed meclizine. If he has recurrent vertigo can reach out to his PCP for outpatient Denae maneuvers otherwise can continue to take his other medications and follow-up as needed. and family at bedside and agreeable to plan of care and updated to diagnosis. Notes For Next Care Provider If patient has recurrent vertigo symptoms consider outpatient physical therapy referral for Denae maneuvers Medication Changes From Visit Meclizine as needed for vertigo Admission HPI Per Admitting Provider This is a 68-year-old male with significant past medical history of hypertension who presents to ED secondary to severe dizziness that started at approximately 2:30 AM. He states he woke up this morning and when he went to get out of bed and downstairs he noticed that he felt dizzy. He has a prior history of vertigo approximately 20 years ago in which it felt similar. He was able to walk back upstairs and go back to bed. When he woke up this morning he told his that, "I just do not feel quite right." He was complaining of frontal headache as well as severe dizziness. He describes the dizziness as a off-balance and spinning like sensation. It progressed to the point he even had difficulty walking. His brought him to the ED. He denied any facial droop, unilateral weakness or speech difficulties. He does report that over the last 4 days he has been having allergy-like symptoms with sinus congestion, nasal drip and runny nose. He typically never has difficulty with allergies to the surprising to him. He currently is upset as he does not want to spend the night away from his in the hospital. Therefore he does have some runny eyes. He denies any recent fever, chills, sweats, change in vision, change in hearing, chest pain, shortness breath, nausea, vomit, abdominal pain, change in bowel or urinary habits. He does wear hearing assist devices which she does not have with him. He does have chronic tinnitus and feels this is unchanged. In ED patient remained hemodynamically stable. He was modestly hypertensive and he states he did take his morning medications. He underwent head CT as well as CTA of head and neck which was completely unremarkable. ED provider trial of meclizine as well as 2 mg of IV Valium and attempt to improve her symptoms and allow him to rest at home. His symptoms however persisted and when he underwent ambulatory trial he was significantly ataxic and unable to walk. Admission Exam Per Admitting Provider See H&P Discharge Exam Constitutional: Alert HEENT: Mucous membranes moist. Lungs: Clear to auscultation, decreased, no wheezes rales or rhonchi CV: S1-S2, regular Abdomen: Soft, nontender, nondistended Extremities: No significant edema Neuro: No focal deficits, NIH stroke scale equals 0 Psych: Cooperative, normal mood Updated Medication List Medication Instructions Recorded Confirmed Type aspirin 81 mg tablet,delayed 81 mg PO DAILY 07/06/21 03/30/24 History release (Jeannie Low Dose Aspirin) multivitamin 1 tab PO DAILY 07/06/21 03/30/24 History amlodipine 5 mg tablet (Norvasc) 5 mg PO QAM #30 tabs 07/09/21 03/30/24 Rx docusate sodium 100 mg capsule 100 mg PO BID #1 cap 07/09/21 03/30/24 Rx lisinopril 20 mg tablet 20 mg PO QAM #30 tabs 07/09/21 03/30/24 Rx polyethylene glycol 3350 17 gram 17 g PO BID #1 ea 07/09/21 03/30/24 Rx oral powder packet (Miralax) meclizine 25 mg tablet 25 mg PO Q8H PRN Dizziness Or 03/31/24 Rx Vertigo 10 days #30 tabs Hospital Stay Data Consultations 03/30/24 15:50 ED Decision to Admit Stat Diagnostic Imagining Performed 03/30/24 10:10 CT angio head w con Stat CT angio neck with con Stat CT head/brain wo con Stat 03/30/24 15:54 MR brain wo/w con Routine Reviewed imaging, laboratory and diagnostic studies. Pertinent findings as below. MRI negative for acute infarct CBC and BMP within normal ranges Respiratory viral panel negative Echocardiogram shows ejection fraction 65 to 70% normal wall motion, no significant valvular disease, no PFO Pending Results Patient Have Any Pending Studies at Discharge: No Discharge Instructions Given to Patient (Per Discharging Provider) If you have recurrent symptoms contact your PCP to get outpatient physical therapy for vestibular training Total Time Total Time Spent Total Time Spent (In Minutes): 27
[2024-03-31 14:37] VITALS: PULSE 59
== END 2024-03-31 15:13 | disposition home or self-care (01) ==
LOC: ED 09:21 → 2N 09:21 → SUATTDRO 15:54 → 2N 17:24